=== PATIENT | female | born 1985 | race Caucasian/White ===

== ENCOUNTER 2017-09-05 04:25 | Emergency (ER) | payer MEDICAID ==
[~2017-09-05] VITALS: Ht 177.8 cm; Wt 100.0 kg
[~2017-09-05 04:25] MED LIST: ASCO500C15 PO; FERR325T28 PO; LEVO750T46 PO; OXYC-150 PO
[2017-09-05 04:37] VITALS: BP 131/96
[2017-09-05] MEDS ORDERED: ketorolac trometh inj. 60 MG/2 ML VIAL IM ONE (05:10)
== END 2017-09-05 05:25 | disposition home or self-care (01) ==
LOC: ER 04:26
DX: M43.6 Torticollis (principal); Z88.0 Allergy status to penicillin; Z88.5 Allergy status to narcotic agent; Z79.899 Other long term (current) drug therapy; Z98.890 Other specified postprocedural states
CPT/HCPCS: 96372; 99283; J1885

== ENCOUNTER 2018-09-30 19:09 | Emergency (ER) | payer MEDICAID ==
[~2018-09-30] VITALS: Ht 170.2 cm; Wt 100.0 kg
[~2018-09-30 19:09] MED LIST changes: +IBUP-1985 PO
[2018-09-30 20:05] LABS: CLARITY,URINE CLEAR (Clear); COLOR,URINE YELLOW (Yellow); GLUCOSE, URINE NEGATIVE (Neg); KETONES,URINE NEGATIVE (Neg); LEUKOCYTE ESTERASE ,URINE TRACE (Neg); NITRITES, URINE NEGATIVE (Neg); OCCULT BLOOD,URINE NEGATIVE (Neg); PROTEIN,URINE NEGATIVE (Neg)
[2018-09-30 20:08] LABS: UA COLLECTION TYPE CLN CATCH MIDSTREAM
[2018-09-30 20:12] LABS: BACTERIA,URINE FEW /HPF (Neg); RBC,URINE 0-2 /HPF (0-2); SQUAMOUS EPITHELIAL CELL,UR MANY /LPF (FEW); WBC,URINE 0-4 /HPF (0-4)
[2018-09-30 20:27] LABS: URINE HCG NEGATIVE (NEG)
[2018-09-30] MEDS ORDERED: NO HOME MEDS (20:36)
[2018-09-30] MEDS ORDERED: ketorolac trometh inj. 60 MG/2 ML VIAL IM ONE (20:45)
[2018-09-30 20:48] VITALS: BP 162/73
== END 2018-09-30 20:57 | disposition home or self-care (01) ==
LOC: ER 19:09
DX: M54.5 Low back pain (principal); R11.2 Nausea with vomiting, unspecified; F17.200 Nicotine dependence, unspecified, uncomplicated; F15.90 Other stimulant use, unspecified, uncomplicated; Z98.890 Other specified postprocedural states; Z88.0 Allergy status to penicillin; Z88.5 Allergy status to narcotic agent; Z79.899 Other long term (current) drug therapy
CPT/HCPCS: 36415; 81001; 81025; 85610; 96372; 99283; J1885

== ENCOUNTER 2020-05-12 01:18 | Emergency (ER) | payer MEDICAID ==
[~2020-05-12] VITALS: Ht 175.3 cm; Wt 100.0 kg
[~2020-05-12 01:18] MED LIST changes: -ASCO500C15 PO; -FERR325T28 PO; -IBUP-1985 PO; -LEVO750T46 PO; +NO HOME MEDS; -OXYC-150 PO
[2020-05-12 02:48] VITALS: BP 108/71
== END 2020-05-12 03:00 | disposition home or self-care (01) ==
LOC: ER 01:18
DX: R07.89 Other chest pain (principal); F15.90 Other stimulant use, unspecified, uncomplicated; F17.200 Nicotine dependence, unspecified, uncomplicated; Z88.0 Allergy status to penicillin; Z79.899 Other long term (current) drug therapy
CPT/HCPCS: 71045; 93005; 93308; 99283; 99284

== ENCOUNTER 2020-06-10 13:44 | Emergency (ER) | payer MEDICAID ==
[~2020-06-10] VITALS: Ht 175.3 cm; Wt 100.0 kg
[2020-06-10 13:55] VITALS: BP 162/105
[2020-06-10] MEDS ORDERED: CHLO473M3 PO (15:35)
[2020-06-10] MEDS ORDERED: L. R1CAP4 PO (15:35)
[2020-06-10] MEDS ORDERED: CLIN150C2 PO (15:35)
[2020-06-10] MEDS ORDERED: acetaminophen 325mg tablet PO ONE (15:45)
== END 2020-06-10 16:17 | disposition home or self-care (01) ==
LOC: ER 13:45
DX: K04.7 Periapical abscess without sinus (principal); F15.90 Other stimulant use, unspecified, uncomplicated; Z98.890 Other specified postprocedural states; Z88.0 Allergy status to penicillin; Z88.5 Allergy status to narcotic agent; Z79.899 Other long term (current) drug therapy
CPT/HCPCS: 99283

== ENCOUNTER 2020-07-07 11:20 | Emergency (ER) | payer MEDICAID ==
[~2020-07-07] VITALS: Ht 175.3 cm; Wt 114.9 kg
[~2020-07-07 11:20] MED LIST changes: +CHLO473M3 PO; +L. R1CAP4 PO
[2020-07-07 11:34] VITALS: BP 146/96
[2020-07-07] MEDS ORDERED: NAPR-56 PO (12:49)
== END 2020-07-07 13:05 | disposition home or self-care (01) ==
LOC: ER 11:21
DX: S93.421A Sprain of deltoid ligament of right ankle, initial encounter (principal); M25.571 Pain in right ankle and joints of right foot; F15.90 Other stimulant use, unspecified, uncomplicated; Z98.890 Other specified postprocedural states; Z88.0 Allergy status to penicillin; Z88.8 Allergy status to other drugs, medicaments and biological substances; Z79.899 Other long term (current) drug therapy; X58.XXXA Exposure to other specified factors, initial encounter; Y93.89 Activity, other specified; Y92.89 Other specified places as the place of occurrence of the external cause; Y99.8 Other external cause status
CPT/HCPCS: 29515; 73610; 99283

== ENCOUNTER 2020-07-15 16:53 | Emergency (ER) | payer MEDICAID ==
[~2020-07-15] VITALS: Ht 175.3 cm; Wt 115.4 kg
[~2020-07-15 16:53] MED LIST changes: +NAPR-56 PO
[2020-07-15 17:37] VITALS: BP 132/90
[2020-07-15] MEDS ORDERED: ketorolac tromethamine 15mg/ml inj. IM ONE (20:25)
== END 2020-07-15 20:48 | disposition home or self-care (01) ==
LOC: ER 16:53
DX: S99.921A Unspecified injury of right foot, initial encounter (principal); F15.90 Other stimulant use, unspecified, uncomplicated; Z87.81 Personal history of (healed) traumatic fracture; Z98.890 Other specified postprocedural states; Z88.0 Allergy status to penicillin; Z88.8 Allergy status to other drugs, medicaments and biological substances; Z79.899 Other long term (current) drug therapy; X58.XXXA Exposure to other specified factors, initial encounter; Y93.89 Activity, other specified; Y92.89 Other specified places as the place of occurrence of the external cause; Y99.8 Other external cause status
CPT/HCPCS: 73610; 73650; 96372; 99284; J1885

== ENCOUNTER 2021-12-26 01:41 | Emergency (ER) | payer MEDICAID ==
[~2021-12-26] VITALS: Ht 175.3 cm; Wt 100.0 kg
[~2021-12-26 01:41] MED LIST changes: -NAPR-56 PO
[2021-12-26] MEDS ORDERED: proparacaine 0.5% ophthalmic drops 15ml EACHEYE ONE (01:55)
[2021-12-26] MEDS ORDERED: acetaminophen 325mg tablet PO ONE (02:10)
[2021-12-26] MEDS ORDERED: ibuprofen tablet 400 MG TABLET PO ONE (02:10)
[2021-12-26] MEDS ORDERED: ondansetron 4mg rapidly disintigrating tab PO ONE (02:30)
[2021-12-26] MEDS ORDERED: fentaNYL/PF 50MCG/1 ML 2ML syringe IM ONE (02:30)
--- NOTE | 2021-12-26 02:46 | NUR ---
FENTENYL ADMINISTERED TO PT BY ELBA DISLA. I WITNESSED MEDICATION DRAW, PARTIAL WASTE, AND INJECTION INTO THE PT. PT WAS IDENTIFIED PRIOR TO THE ADMINISTRATION.
--- NOTE | 2021-12-26 02:46 | NUR ---
Not able to scan meds as when it was drawn up in the med room and wasted, the packaging was inadvertently discarded into sharps container. Imelda Tineo LPN witnessed my waste, and the medication administration.
[2021-12-26] MEDS ORDERED: erythromycin ophthalmic ointment 1gm tube RIGHTEYE ONE (03:20)
[2021-12-26] MEDS ORDERED: ERYT1OIN6 EACHEYE (03:21)
[2021-12-26 03:34] VITALS: BP 148/78
== END 2021-12-26 03:35 | disposition home or self-care (01) ==
LOC: ER 01:42
DX: S05.01XA Injury of conjunctiva and corneal abrasion without foreign body, right eye, initial encounter (principal); H57.11 Ocular pain, right eye; F15.90 Other stimulant use, unspecified, uncomplicated; Z98.890 Other specified postprocedural states; Z88.0 Allergy status to penicillin; Z88.8 Allergy status to other drugs, medicaments and biological substances; Z79.2 Long term (current) use of antibiotics; Z79.899 Other long term (current) drug therapy; X58.XXXA Exposure to other specified factors, initial encounter; Y93.89 Activity, other specified; Y92.89 Other specified places as the place of occurrence of the external cause; Y99.8 Other external cause status
CPT/HCPCS: 96372; 99284; J3010

== ENCOUNTER 2023-05-24 13:57 | Emergency (ER) | payer MEDICAID ==
[~2023-05-24] VITALS: Ht 177.8 cm; Wt 109.1 kg
[2023-05-24 14:18] VITALS: BP 146/77; PULSE 106; TEMP 97.6; O2SAT 95
[2023-05-24 16:06] LABS: BASOPHILS # (AUTO) 0.1 X10'3 (0-0.2); BASOPHILS % (AUTO) 0.7 % (0-1); EOSINOPHILS # (AUTO) 0.5 X10'3 (0-0.9); EOSINOPHILS % (AUTO) 4.7 % (0-6); HEMATOCRIT 45.1 % (35.0-45.0); HEMOGLOBIN 14.9 g/dl (12.0-16.0); LYMPHOCYTES # (AUTO) 3.1 X10'3 (1.1-4.8); LYMPHOCYTES % (AUTO) 27.8 % (21-51); MEAN CORPUSCULAR HEMOGLOBIN 28.7 PG (27.0-31.0); MEAN CORPUSCULAR HGB CONC 32.9 g/dL (33.0-36.5); MEAN PLATELET VOLUME 8.3 FL (7.4-10.4); MONOCYTES # (AUTO) 0.9 X10'3 (0-0.9); NEUTROPHILS # (AUTO) 6.5 X10'3 (1.8-7.7); NEUTROPHILS % (AUTO) 58.8 % (42-75); PLATELET COUNT 289 X10'3 (140-440); RED BLOOD COUNT 5.18 X10'6 (4.20-5.60); RED CELL DISTRIBUTION WIDTH 14.2 % (11.5-14.5); WHITE BLOOD COUNT 11.1 X10'3 (4.5-11.0)
[2023-05-24 16:21] LABS: ALANINE AMINOTRANSFERASE 24 U/L (12-78); ALBUMIN 3.1 G/DL (3.4-5.0); ALBUMIN/GLOBULIN RATIO 0.8 (1.1-1.5); ALKALINE PHOSPHATASE 93 IU/L (46-116); ANION GAP 8 (8-16); ASPARTATE AMINO TRANSFERASE 13 U/L (10-37); BILIRUBIN,TOTAL 0.3 MG/DL (0.1-1.0); BLOOD UREA NITROGEN 15 MG/DL (7-18); BUN/CREATININE RATIO 20.5 (10.0-20.0); CALCIUM 8.7 MG/DL (8.5-10.1); CHLORIDE 107 MMOL/L (99-107); CREATININE 0.73 MG/DL (0.40-0.90); GLUCOSE 91 MG/DL (70-104); SODIUM 139 MMOL/L (135-145); TOTAL CARBON DIOXIDE 23.8 MMOL/L (24-32); TOTAL PROTEIN 7.2 G/DL (6.4-8.2); eCRCL 112 ML/MIN; eGFR 89 ML/MIN
[2023-05-24 16:25] LABS: ALBUMIN 3.2 G/DL (3.4-5.0); ANION GAP 8 (8-16); BLOOD UREA NITROGEN 14 MG/DL (7-18); BUN/CREATININE RATIO 18.7 (10.0-20.0); CALCIUM 8.6 MG/DL (8.5-10.1); CHLORIDE 106 MMOL/L (99-107); CREATININE 0.75 MG/DL (0.40-0.90); GLUCOSE 89 MG/DL (70-104); PRO BRAIN NATRIURETIC PEPTIDE 30 PG/ML (0-125); SODIUM 139 MMOL/L (135-145); TOTAL CARBON DIOXIDE 25.5 MMOL/L (24-32); eCRCL 109 ML/MIN; eGFR 86 ML/MIN
[2023-05-24 16:34] LABS: PRO BRAIN NATRIURETIC PEPTIDE < 30 PG/ML (0-125)
[2023-05-24 17:28] VITALS: RESP 18
== END 2023-05-24 17:41 | disposition home or self-care (01) ==
LOC: ER 13:58
DX: R07.89 Other chest pain (principal); F15.90 Other stimulant use, unspecified, uncomplicated; Z88.0 Allergy status to penicillin; Z88.5 Allergy status to narcotic agent; Z79.899 Other long term (current) drug therapy
CPT/HCPCS: 36415; 71045; 80048; 80053; 83880; 84484; 85025; 93005; 99285

== ENCOUNTER 2024-01-15 00:51 | Emergency (ER) | payer MEDICAID ==
[~2024-01-15] VITALS: Ht 175.3 cm; Wt 127.0 kg
[~2024-01-15 00:51] MED LIST changes: +CHLO473M13 PO; -CHLO473M3 PO
[2024-01-15 01:00] VITALS: BP 155/85; O2SAT 97
[2024-01-15 01:29] LABS: BASOPHILS # (AUTO) 0.1 X10'3 (0-0.2); BASOPHILS % (AUTO) 0.7 % (0-1); EOSINOPHILS # (AUTO) 0.6 X10'3 (0-0.9); EOSINOPHILS % (AUTO) 5.6 % (0-6); HEMATOCRIT 43.6 % (35.0-45.0); HEMOGLOBIN 14.7 g/dl (12.0-16.0); LYMPHOCYTES % (AUTO) 29.5 % (21-51); MEAN CORPUSCULAR HEMOGLOBIN 29.9 PG (27.0-31.0); MEAN CORPUSCULAR HGB CONC 33.7 g/dL (33.0-36.5); MEAN CORPUSCULAR VOLUME 88.5 FL (78-98); MEAN PLATELET VOLUME 7.8 FL (7.4-10.4); MONOCYTES # (AUTO) 0.8 X10'3 (0-0.9); MONOCYTES % (AUTO) 8.1 % (2-12); NEUTROPHILS # (AUTO) 5.8 X10'3 (1.8-7.7); NEUTROPHILS % (AUTO) 56.1 % (42-75); PLATELET COUNT 353 X10'3 (140-440); RED BLOOD COUNT 4.92 X10'6 (4.20-5.60); RED CELL DISTRIBUTION WIDTH 13.7 % (11.5-14.5); WHITE BLOOD COUNT 10.3 X10'3 (4.5-11.0)
[2024-01-15 01:45] LABS: ALANINE AMINOTRANSFERASE 37 U/L (12-78); ALBUMIN/GLOBULIN RATIO 0.7 (1.1-1.5); ALKALINE PHOSPHATASE 102 IU/L (46-116); ANION GAP 8 (8-16); ASPARTATE AMINO TRANSFERASE 21 U/L (10-37); BILIRUBIN,TOTAL 0.3 MG/DL (0.1-1.0); BLOOD UREA NITROGEN 16 MG/DL (7-18); BUN/CREATININE RATIO 14.8 (10.0-20.0); CALCIUM 8.3 MG/DL (8.5-10.1); CHLORIDE 106 MMOL/L (99-107); CREATININE 1.08 MG/DL (0.40-0.90); GLUCOSE 116 MG/DL (70-104); POTASSIUM 4.1 MMOL/L (3.5-5.1); SODIUM 139 MMOL/L (135-145); TOTAL CARBON DIOXIDE 25.1 MMOL/L (24-32); TOTAL PROTEIN 7.2 G/DL (6.4-8.2); eCRCL 73 ML/MIN; eGFR 56 ML/MIN
[2024-01-15 01:53] LABS: LIPASE 59 U/L (16-77); PRO BRAIN NATRIURETIC PEPTIDE 66 PG/ML (0-125)
[2024-01-15] MEDS: magnesium sulf-water 2g/50mL 50 ML IV ONE (03:02)
[2024-01-15] MEDS: ketorolac trometh 15mg/ml vial 15 MG/ML ML IV ONE (04:04)
[2024-01-15 04:32] VITALS: PULSE 111; RESP 16; TEMP 98.3
== END 2024-01-15 04:40 | disposition home or self-care (01) ==
LOC: ER 00:52
DX: R07.89 Other chest pain (principal); F15.90 Other stimulant use, unspecified, uncomplicated; F17.200 Nicotine dependence, unspecified, uncomplicated; R11.2 Nausea with vomiting, unspecified; Z88.0 Allergy status to penicillin; Z88.5 Allergy status to narcotic agent
CPT/HCPCS: 36415; 71045; 80053; 83690; 83880; 84484; 85025; 93005; 96365; 96375; 99285; J1885